=== PATIENT | male | born 1945 ===

== ENCOUNTER 2023-04-12 12:59 | Inpatient (IN) | payer OTHER ==
[~2023-04-12] VITALS: Ht 162.6 cm; Wt 0.5 kg
[2023-04-19] MEDS ORDERED: LISINOPRIL-HCT1 EAC1 (09:15)
[2023-04-19] MEDS ORDERED: BAYER THERAPY325 MG (09:15)
[2023-04-19] MEDS ORDERED: FINASTERIDE5 MG (09:15)
[2023-04-19] MEDS ORDERED: MONTELUKAST SOD10 MG (09:15)
[2023-04-19] MEDS ORDERED: ATORVASTATIN CA10 MG (09:15)
[2023-05-01] MEDS ORDERED: HYOSCYAMINE0.125 M1 SL (11:29)
[2023-05-01] MEDS ORDERED: PEPCID AC20 MG PO (11:30)
[2023-05-01] MEDS ORDERED: INTESTINEX680 M1 PO (11:30)
[2023-05-01] MEDS ORDERED: TAMS0.4C PO (11:30)
[2023-05-01] MEDS ORDERED: LEVOFLOXACIN750 MG PO (11:30)
[2023-05-01] MEDS ORDERED: TRAM1TAB98 PO (11:31)
== END 2023-05-09 15:47 | disposition home or self-care (01) | DRG 330 ==
LOC: EDUNIT# 04-13 12:00 → SURH 04-19 05:50 → O/R 04-19 05:50 → EDSEX 04-19 05:50 → SURH 04-19 12:00
PROVIDERS: ADMIT Colon & Rectal Surgery; ATTEND Colon & Rectal Surgery
PROC: 0DBP4ZZ Excision of Rectum, Percutaneous Endoscopic Approach (ICD-10-PCS; 2023-04-19)
PROC: 07BB4ZZ Excision of Mesenteric Lymphatic, Percutaneous Endoscopic Approach (ICD-10-PCS; 2023-04-19)
PROC: 07BC4ZZ Excision of Pelvis Lymphatic, Percutaneous Endoscopic Approach (ICD-10-PCS; 2023-04-19)
PROC: 0DJD8ZZ Inspection of Lower Intestinal Tract, Via Natural or Artificial Opening Endoscopic (ICD-10-PCS; 2023-04-19)
PROC: 0DTN4ZZ Resection of Sigmoid Colon, Percutaneous Endoscopic Approach (ICD-10-PCS; principal; 2023-04-19 22:30)
PROC: BW21YZZ Computerized Tomography (CT Scan) of Abdomen and Pelvis using Other Contrast (ICD-10-PCS; 2023-04-26)
DX: C20 Malignant neoplasm of rectum (principal); N13.30 Unspecified hydronephrosis; N17.9 Acute kidney failure, unspecified; N39.0 Urinary tract infection, site not specified; Z16.24 Resistance to multiple antibiotics; R59.0 Localized enlarged lymph nodes; I12.9 Hypertensive chronic kidney disease with stage 1 through stage 4 chronic kidney disease, or unspecified chronic kidney disease; N18.9 Chronic kidney disease, unspecified; T83.021A Displacement of indwelling urethral catheter, initial encounter; B96.5 Pseudomonas (aeruginosa) (mallei) (pseudomallei) as the cause of diseases classified elsewhere; B96.89 Other specified bacterial agents as the cause of diseases classified elsewhere

== ENCOUNTER 2023-04-13 09:23 | Outpatient (CLI) | payer OTHER | END 2023-04-13 09:26 | disposition home or self-care (01) | LOC: LAB 09:23 | PROVIDERS: ATTEND Colon & Rectal Surgery | DX: C19 Malignant neoplasm of rectosigmoid junction (principal); Z85.038 Personal history of other malignant neoplasm of large intestine; Z03.818 Encounter for observation for suspected exposure to other biological agents ruled out; Z20.822 Contact with and (suspected) exposure to COVID-19 ==